=== PATIENT | male | born 1960 | race Caucasian/White ===

== ENCOUNTER 2017-09-20 21:33 | Emergency (ER) | payer OTHER ==
[~2017-09-20] VITALS: Ht 182.9 cm; Wt 80.7 kg
[~2017-09-20 21:33] MED LIST: SIMV20TA2 PO
--- NOTE | 2017-09-20 21:45 | NUR ---
PT RECEIVED FROM HOME BIB SELF C/O RUQ PAIN 02/09 STATING "I HAD GALLBLADDER REMOVED 10 YEARS AGO" AMONG MANY OTHER COMPLAINTS. NO SOB NOTED AT THIS TIME WITH ADEQUATE CHEST RISE/FALL. A/OX4 VSS NAD. WILL CONTINUE TO MONITOR FOR ANY CHANGES
[2017-09-20 22:06] VITALS: BP 123/66
--- NOTE | 2017-09-20 22:15 | NUR ---
ER AT BEDSIDE FOR EVAL
--- NOTE | 2017-09-20 22:20 | NUR ---
PT IS UPSET STATING "I WANT TO REPORT THIS MD AND I AM UPSET. SHE NEEDS TO GO BACK TO [place] SHE CAME FROM". SPOKE WITH PT AND WAS ABLE TO GET HIM TO CALM DOWN.
--- NOTE | 2017-09-20 22:39 | NUR ---
PER MD, PT DID NOT WANT TO BE EVALUATED BY THIS MD.
--- NOTE | 2017-09-20 22:39 | NUR ---
PT SPOKE TO TRIAGE NURSE AND PT DID NOT WANT TO BE SEEN BY CURRENT ER MD. PT LEFT WITHOUT BEING SEEN.
== END 2017-09-20 22:42 | disposition left against medical advice (07) ==
LOC: ER 21:40
DX: Z53.21 Procedure and treatment not carried out due to patient leaving prior to being seen by health care provider (principal)
CPT/HCPCS: A4606; Z7610

== ENCOUNTER 2018-10-29 20:34 | Emergency (ER) | payer OTHER ==
[~2018-10-29] VITALS: Ht 180.3 cm; Wt 81.6 kg
[2018-10-29 21:10] VITALS: BP 125/85
== END 2018-10-29 22:23 | disposition home or self-care (01) ==
LOC: ER 20:36
DX: B37.9 Candidiasis, unspecified (principal); Z90.89 Acquired absence of other organs; Z90.49 Acquired absence of other specified parts of digestive tract; Z98.890 Other specified postprocedural states; Z88.0 Allergy status to penicillin; Z79.899 Other long term (current) drug therapy

== ENCOUNTER 2018-12-19 15:56 | Emergency (ER) | payer OTHER ==
[~2018-12-19] VITALS: Ht 180.3 cm; Wt 83.9 kg
[2018-12-19 16:04] VITALS: BP 120/73
--- NOTE | 2018-12-19 17:38 | NUR ---
Patient discharged to home in stable condition. Written and verbal after care instructions given. Patient verbalizes understanding of instruction.
== END 2018-12-19 17:41 | disposition home or self-care (01) ==
LOC: ER 15:58
DX: B37.9 Candidiasis, unspecified (principal); F41.9 Anxiety disorder, unspecified; E78.00 Pure hypercholesterolemia, unspecified; Z88.0 Allergy status to penicillin; Z90.49 Acquired absence of other specified parts of digestive tract; Z98.890 Other specified postprocedural states

== ENCOUNTER 2021-02-19 22:15 | Emergency (ER) | payer OTHER ==
[~2021-02-19] VITALS: Ht 182.9 cm; Wt 81.6 kg
--- NOTE | 2021-02-19 22:47 | NUR ---
THE PATIENT IS BIBS FOR C/O RT LEG PAIN SINCE THIS AM; STATES "HE WOKE UP AND TWISTED HIS ANKLE". THE PATIENT RATES PAIN 4/10. RIGHT LOWER ANKLE NOTED WITH SLIGHT SWELLING. DENIES NUMBNESS/TINGLING IN THE EXTREMITY. WILL CONTINUE TO MONITOR THE PATIENT.
--- NOTE | 2021-02-19 22:48 | NUR ---
RADIOLOGY AT BEDSIDE
--- NOTE | 2021-02-20 | NUR ---
CALLED [facility] FOR REPORT
--- NOTE | 2021-02-20 00:20 | NUR ---
Patient discharged to home in stable condition. Written and verbal after care instructions given. Patient verbalizes understanding of instruction.Pt ambulatory with a steady gait
[2021-02-20 00:21] VITALS: BP 124/79
== END 2021-02-20 00:21 | disposition home or self-care (01) ==
LOC: ER 22:18
DX: S93.491A Sprain of other ligament of right ankle, initial encounter (principal); F41.9 Anxiety disorder, unspecified; Z90.89 Acquired absence of other organs; Z90.49 Acquired absence of other specified parts of digestive tract; Z88.0 Allergy status to penicillin; Z79.899 Other long term (current) drug therapy; X50.1XXA Overexertion from prolonged static or awkward postures, initial encounter; Y93.89 Activity, other specified; Y92.89 Other specified places as the place of occurrence of the external cause; Y99.8 Other external cause status
CPT/HCPCS: 73590-TC; 73610-TC

== ENCOUNTER 2024-04-13 20:20 | Emergency (ER) | payer MEDICARE, OTHER ==
[~2024-04-13] VITALS: Ht 182.9 cm; Wt 65.8 kg
[2024-04-13 21:13] VITALS: TEMP 98.5
[2024-04-13 21:45] LABS: BASOPHILS % (AUTO) 0.2 % (0.0-2.0); EOSINOPHILS % (AUTO) 0.2 % (0.0-6.0); HEMATOCRIT 47 % (39-51); HEMOGLOBIN 15.9 g/dL (13.5-17.5); LYMPHOCYTES % (AUTO) 13.2 % (20.0-44.0); MEAN CORPUSCULAR HEMOGLOBIN 30 PG (26.0-33.0); MEAN CORPUSCULAR HGB CONC 34 g/dl (31.0-36.0); MEAN CORPUSCULAR VOLUME 88 fL (80-96); MONOCYTES # (AUTO) 0.3 K/uL (0.1-1.30); MONOCYTES % (AUTO) 4.7 % (2.0-12.0); NEUTROPHILS # (AUTO) 5.9 K/uL (1.8-8.9); NEUTROPHILS % (AUTO) 81.7 % (43.0-81.0); PLATELET COUNT (AUTO) 208 K/uL (150-450); RED BLOOD CELL COUNT(AUTO) 5.34 MIL/uL (4.5-6.0); RED CELL DISTRIBUTION WIDTH 14.1 % (11.5-15.0); WHITE BLOOD COUNT (AUTO) 7.2 K/uL (4.3-11.0)
[2024-04-13 21:53] LABS: CALCIUM, SERUM 9.2 mg/dL (8.5-10.1); CARBON DIOXIDE 28 mmol/L (21-32); CHLORIDE 105 mmol/L (98-107); CREATININE 1.1 mg/dL (0.6-1.3); GLUCOSE 125 mg/dL (74-106); POTASSIUM 4.2 mmol/L (3.5-5.1); SODIUM SERUM 141 mmol/L (136-145); UREA NITROGEN, BLOOD 11 mg/dL (7-18)
[2024-04-13 22:23] VITALS: BP 125/78; O2SAT 99
== END 2024-04-13 22:22 | disposition home or self-care (01) ==
LOC: ER 20:21
DX: R07.9 Chest pain, unspecified (principal); F41.9 Anxiety disorder, unspecified; Z90.49 Acquired absence of other specified parts of digestive tract; Z90.89 Acquired absence of other organs; Z88.0 Allergy status to penicillin
CPT/HCPCS: 36415; 71045-TC; 80048-TC; 84484-TC; 85025-TC